=== PATIENT | male | born 1955 | race Caucasian/White ===

== ENCOUNTER 2018-06-22 13:48 | Outpatient (CLI) | payer OTHER ==
[2018-06-22 14:20] LABS: ANION GAP 4 mmol/L (5-15); CALCIUM 8.8 mg/dL (8.5-10.1); CHLORIDE 111 mmol/L (98-107)
[2018-06-22 14:37] LABS: CREATININE 1.16 mg/dL (0.7-1.3)
== END 2018-06-22 23:59 | disposition home or self-care (01) ==
LOC: LAB 13:48
PROVIDERS: ATTEND Urology
DX: N40.1 Benign prostatic hyperplasia with lower urinary tract symptoms (principal); N28.9 Disorder of kidney and ureter, unspecified
CPT/HCPCS: 36415; 80048; 84153